=== PATIENT | female | born 1990 ===

== ENCOUNTER 2017-04-16 14:14 | Inpatient (IN) | payer SELFPAY ==
[2017-04-16 14:40] LABS: Hematocrit 32.7 % (36.0-47.0); Mean Platelet Volume 8.3 fL (7.4-10.4); White Blood Cell (WBC) Count 14.7 thou/uL (4.8-10.8)
[2017-04-16 14:55] VITALS: BMI 22.0
[2017-04-16] MEDS ORDERED: Fentanyl 100 MCG/2 ML VIAL ONE (15:02)
--- NOTE | 2017-04-16 15:04 | PDOC.LDHP ---
Labor and Delivery H&P Chief complaint: other HPI: pph from [facility]. bp 90/60 w 1500 cc ebl Grav: 2 Para: 2 Current complications: none Abnormal US findings: No Current medications: pre-jerry vitamins Previous surgical history: none Allergies/Adverse Reactions: Allergies Allergy/AdvReac Type Severity Reaction Status Date / Time No Known Allergies Allergy Unverified 04/16/17 14:52 Social history: none - Physical Exam Vital signs reviewed and normal: yes - OB Labs Blood type: O RH: positive HIV: negative RPR: negative HEPSAg: negative GBS: negative - Assessment pph with retained placenta. 1 unit un cross matched for hypoltension and shock. to or for eua and indicated procedures stat
[2017-04-16 15:11] LABS: Prothrombin Time 13.7 SEC (12.0-14.7)
[2017-04-16 15:12] LABS: PTT 22.6 SEC (22.9-36.1)
[2017-04-16] MEDS ORDERED: PHENYLEPHRINE-NS 100 MCG/ML 10 ML SYRINGE ONE (15:16)
[2017-04-16] MEDS ORDERED: Succinylcholine Chloride 20 MG/ML 10 ml SYRINGE FS ONE (15:16)
[2017-04-16] MEDS ORDERED: Propofol 200 MG/20 ML VIAL ONE (15:16)
[2017-04-16] MEDS ORDERED: Glycopyrrolate 0.2 MG/ML 5 ML SYRINGE ONE (15:16)
[2017-04-16] MEDS ORDERED: LR / Pitocin 40 units/1000 ml 1,000 ML ONE (15:17)
[2017-04-16] MEDS ORDERED: Carboprost 250 MCG/ML AMP ONE (15:36)
[2017-04-16] MEDS ORDERED: Diphenoxylate HCl/Atropine Tablet PO SCH (15:45)
--- NOTE | 2017-04-16 16:00 | HP ---
DATE OF ADMISISON: 04/16/2017 TIME OF DICTATION: 1430 REASON FOR ADMISSION: Retained placenta with hemorrhage and suspected anemia, status post 1-1/[address] [facility]. HISTORY OF PRESENT ILLNESS: Ms. Olivera is a 27-year-old 2, now para 2, who delivered at approximately 1300 hours. She was taken care of by Hero Harper , video player mechanic at [facility]. The patient had retained placenta that was unresponsive to IM injections of Pitocin, unknown amount at [facility]. She had hemorrhage as reported is approximately 700 mL and was transported in by [facility]. The patient arrived with two large bore IVs and the patient is very pale with a pulse of 71, blood pressure of 90/60. Her blood type is O positive. Most recent hematocrit was 35 %. OB AND WIRE TECHNICIAN HISTORY: x2. No history of complications. PAST SURGICAL HISTORY: None. PAST MEDICAL HISTORY: None. ALLERGIES: Denies. MEDICATIONS: vitamins. SOCIAL HISTORY: Denies tobacco, alcohol or drug abuse. FAMILY HISTORY: Noncontributory. REVIEW OF SYSTEMS: Noncontributory. PHYSICAL EXAMINATION: GENERAL: A very pale, somewhat somnolent appearing white female. VITAL SIGNS: Temperature 98.2, respirations 18, pulse 72, blood pressure 90/60. HEART: Regular rate and rhythm. LUNGS: Clear to auscultation bilaterally. ABDOMEN: Soft and nontender. She has a fundus at the level of the umbilicus, it is firm. VAGINAL EXAM: She has an umbilical cord still protruding from the vagina. Upon initial exam and traction, the placenta did not deliver. Approximately, 400-500 mL of clots were noted to come from the vagina in the delivery room. I was unable to do exam for laceration. EXTREMITIES: Dorsalis pedis pulses are present, but the extremities are cold. IMPRESSION: 1. Retained placenta. 2. hemorrhage, I suspect approximately 1500 mL to 2000 mL. 3. Unknown obstetrical laceration status. PLAN: We will go ahead and transfuse the patient with 1 unit of uncrossed blood and anticipate the cross matched blood will be available by the time a second unit will be run in. We will consult anesthesia and take the patient to the operating room and perform exam under anesthesia, manual removal of placenta , possible D\T\C, possible exploratory laparotomy, possible hysterectomy. May need to activate massive hemorrhage protocol for blood loss. MTDD
[2017-04-16] MEDS ORDERED: diphenhydrAMINE HCl 25 MG CAP PO PRN (16:04)
[2017-04-16] MEDS ORDERED: Benzocaine/Menthol 20-0.5% 60 ML CAN TOP PRN (16:04)
[2017-04-16] MEDS ORDERED: Milk Of Magnesia 30 ML UDCUP PO PRN (16:04)
[2017-04-16] MEDS ORDERED: Ondansetron HCl/PF 4 MG/2 ML Vial IVP PRN (16:04)
[2017-04-16] MEDS ORDERED: Bisacodyl 10 MG SUPP PR PRN (16:04)
[2017-04-16] MEDS ORDERED: Preparation H Ointment 28 GM TUBE PR PRN (16:04)
[2017-04-16] MEDS ORDERED: Adacel (T-DAP) 0.5 ML VIAL IM ONE (16:04)
[2017-04-16] MEDS ORDERED: LR / Pitocin 40 units/1000 ml 1,000 ML IV SCH (16:15)
[2017-04-16] MEDS ORDERED: FLU VACC QS2017-18 36 mo. & older 0.5 ML SYRINGE IM ONE (16:45)
--- NOTE | 2017-04-16 18:37 | OP ---
DATE OF OPERATION: 04/16/2017 PREOPERATIVE DIAGNOSIS: Retained placenta, status post hemorrhage, transferred from [facility]. POSTOPERATIVE DIAGNOSIS: Retained placenta, status post hemorrhage, transferred from [facility], midline first-degree laceration. PROCEDURE: Exam under anesthesia, manual removal of placenta, and repair of first-degree laceration . SURGEON: Zacarias Hoskins M.D. ANESTHESIA: Tommy Feliciano M.D. ESTIMATED BLOOD LOSS: 500 mL intraoperative. ESTIMATED TOTAL BLOOD LOSS: 2637-2369 mL COMPLICATIONS: None. MEDICATIONS: Two grams Ancef. PREPROCEDURE DVT PROPHYLAXIS: SCDs. DRAINS: [place] to gravity. SPECIMENS REMOVED: Placenta for pathology. OPERATIVE FINDINGS: 1. Retained placenta adherent to the uterus but removed manually in its entirety with manual curett age. At the end of the procedure, there was no evidence of retained products of conception. 2. A firm uterus with minimal blood loss at the end of the procedure. 3. First-degree midline laceration repaired with 2-0 chromic in the usual manner. DISPOSITION: Recovery room and LICU in good condition. TRANSFUSION PRODUCTS: The patient received 2 units PRBCs, counting both pre and intraoperative yan sfusion, third unit PRBCs was started intraoperatively secondary to persistent hypertension. DESCRIPTION OF OPERATIVE PROCEDURE: The patient was taken to the operating room on an emergent basi s secondary to PPH and retained products of conception. She received 1 unit of uncross-matched bloo d and a crossmatch blood was received immediately after rapid sequence induction. The patient under went a rapid sequence induction with general anesthetic and was prepped and draped in dorsal lithoto my in Giovani stirrups. She received 2 grams of Ancef and had SCDs for DVT prophylaxis. After preppi ng and draping, fundal massage expressed a large amount of clots into collection drain, which indica janelle 500 mL total blood at the end of the procedure. Traction was applied to the umbilical cord, but no movement of the placenta was noted. The raimann machine operator introduced his gloved right hand up into the u terine cavity and was able to palpate the placenta. The uterus seemed to be intact. A cleavage vu ne between the placenta and the uterine wall was initiated and after approximately 5-6 minutes of ef fort, it was developed around the entirety of the placenta and it delivered spontaneously. Further curettage removed a small amount of membranes that was left behind but otherwise was unremarkable. Manual reassembly of the placenta in the base revealed no evidence of missing , and it was felt that the placenta was removed in its entirety manually. 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 The patient had been administered Pitocin both IV and IM and after delivery, the placenta was administer ed Hemabate 1 amp IM x1. First-degree laceration was identified and repaired using chromic in the u sual manner. Good hemostasis was noted. Re-exploration of the uterus at this time revealed no larg e amount of clots, good tone, and no evidence of retained products of conception. The patient had i nitiation of a third unit PRBCs, [place] in situ and was taken to recovery room in guarded condition. She will receive recovery in the PACU and then will be transferred to labor ICU status for the [facility] t. We will check both the coagulation factors as well as hematocrit in several hours and continuall y assess the patient's uterine tone, uterine blood loss, and perfusion criteria.
[2017-04-16 20:57] LABS: #Basophils 0.1 thou/uL (0.0-0.2); #Lymphocytes 2.1 thou/uL (1.20-3.40); #Neutrophils 10.3 thou/uL (1.40-6.50); %Basophils 0.4 % (0.0-1.0); %Eosinophils 0.1 % (0.0-10.0); %Lymphocytes 15.8 % (21.0-51.0); %Monocytes 7.7 % (0.0-10.0); Hematocrit 34.7 % (36.0-47.0); Mean Platelet Volume 8.5 fL (7.4-10.4); Red Blood Cell (RBC) Count 3.76 mill/uL (4.20-5.40); White Blood Cell (WBC) Count 13.6 thou/uL (4.8-10.8)
[2017-04-16 21:07] LABS: PTT 24.2 SEC (22.9-36.1); Prothrombin Time 13.5 SEC (12.0-14.7)
[2017-04-16] MEDS ORDERED: Ibuprofen 600 MG TAB PO PRN (23:21)
[2017-04-16] MEDS ORDERED: Acetaminophen 325 MG TAB PO PRN (23:21)
[2017-04-16] MEDS ORDERED: HYDROcodone/Acetaminophen 5/325 mg Tablet PO PRN ×2 (23:21)
[2017-04-17] MEDS: Docusate (Surfak) 240 MG CAP PO SCH ×2 (00:43→09:26)
[2017-04-17 12:55] VITALS: BP 104/56; TEMP 98
--- NOTE | 2017-04-17 13:28 | DIS ---
DATE OF ADMISSION: 04/16/2017 DATE OF DISCHARGE: 04/17/2017 SUMMARY OF HOSPITAL COURSE: Ms. Olivera was admitted from [facility] approximately one and half hour status post with hemorrhage, retained placenta. She is noted to have approximately 1500 mL to 2000 mL blood loss in the hospital preoperatively and intraoperatively and underwent a manual removal of placenta approximately at 15:30 on 04/16/2017. She received 3 units o f PRBCs for hypotension with blood pressures down to the 70s/40s during her care. Postoperatively, she has had unremarkable care with a firm fundus, minimal bleeding and normal vital signs, temperatu re is 98.2, pulse is 86, respirations 20, blood pressure 96/52. Last hematocrit is 34.7%. White co unt slightly elevated at 13.6. Blood type is O positive. The patient will be discharged home after noon on 04/17/2017 with follow up with Hero , nurse warehouse handler at [facility].
== END 2017-04-17 12:30 | disposition home or self-care (01) | DRG 774 ==
LOC: L&D/OP 14:14 → L&D 17:18 → 3SW 22:29
PROVIDERS: ADMIT Obstetrics & Gynecology; ATTEND Obstetrics & Gynecology
PROC: 10E0XZZ Delivery of Products of Conception, External Approach (ICD-10-PCS; principal; 2017-04-16)
PROC: 0HQ9XZZ Repair Perineum Skin, External Approach (ICD-10-PCS; 2017-04-16)
PROC: 30233N1 Transfusion of Nonautologous Red Blood Cells into Peripheral Vein, Percutaneous Approach (ICD-10-PCS; 2017-04-16)
DX: O72.0 Third-stage hemorrhage (principal); I95.9 Hypotension, unspecified
CPT/HCPCS: 36415; 36430; 85027; 85384; 85610; 85730; 86780; 86850; 86900; 86901; 87340; 87389; J2704; J3010; J3490; P9016